=== PATIENT | female | born 1990 | race Caucasian/White ===

== ENCOUNTER 2016-07-15 09:54 | Emergency (ER) | payer BC, OTHER ==
[2016-07-15 10:08] VITALS: TEMP 98.1; O2SAT 98
--- NOTE | 2016-07-15 10:14 | CPEKG ---
Heart Rate: 89 RR Interval: 674 P-R Interval: 160 QRSD Interval: 88 QT Interval: 368 QTC Interval: 448 P Ingalls: 63 QRS Ingalls: 50 T Wave Ingalls: -18 EKG Severity - BORDERLINE ECG - EKG Impression: SINUS RHYTHM EKG Impression: BORDERLINE T ABNORMALITIES, DIFFUSE LEADS Electronically Signed By: Adeel Edward 16-Jul-2016 11:43:41
[2016-07-15] MEDS ORDERED: NS 500 ML IV ONE ×2 (10:18→11:26)
--- NOTE | 2016-07-15 10:22 | UCPHY ---
H & P Time Seen by Provider: 07/15/16 10:07 Patient Type: New HPI/ROS: CHIEF COMPLAINT: Fall, syncope HISTORY OF PRESENT ILLNESS: Patient is a 25-year-old female who presents emergency department after having syncopal episode at work. Patient states that she is G1 para 1. She has an [id number] child that she is . She has had a heavy period for the past month. She had an IUD placed in September. The patient also reports the stomach flu last week with multiple episodes of vomiting. She feels "dehydrated." While at work she had no preceding symptoms. She "blacked out" and fell to the floor. She struck the front of her face breaking her teeth. She denies any headache or neck pain at this time. She has no lightheadedness or dizziness. No chest pain or shortness of breath. No recent travel. No leg pain or swelling. No previous episodes of syncope. REVIEW OF SYSTEMS: My complete review of systems is negative except as mentioned in the HPI. Past Medical/Surgical History: Negative Past surgical history: Negative Social history: The patient does not smoke use alcohol. Smoking Status: Never smoked Physical Exam: Vitals noted GENERAL: No acute distress, alert. HEAD: No evidence of trauma. EYES: PERRLA, EOMI, normal to inspection. ENT: Airway intact, patient has a fracture her to upper front teeth. These appear to be Cabrera 1 fractures. I see no pulp No malocclusion, no hemotympanum , normal external examination. NECK: The trachea is midline. There is no crepitus. The C-spine is nontender. NEXUS criteria is negative (no midline tenderness, no distracting injury, no altered mental status, no recent alcohol use, no focal neurologic deficit). RESPIRATORY: Clear to auscultation bilaterally, no rales, rhonchi or wheezing. There is no crepitus or palpable rib fractures. CVS: Regular rate and rhythm, no rubs, murmurs, or gallops. ABDOMEN: Soft, nontender, nondistended, normal bowel sounds, no bruising or abrasions. Pelvis: Stable. No tenderness palpation. Hips full range of motion. BACK: Normal to inspection, no spinal tenderness, no spinal step off, no notable bruising or abrasions. SKIN: Normal color, warm, dry. No pallor or diaphoresis. EXTREMITIES: Atraumatic, neurovascularly intact distally in all extremities, pelvis is stable , hips with full range of motion, moves all extremities freely. NEURO/PSYCH: Higher functions: Alert and Oriented x3. Normal speech and cognition. Normal mood and affect. Cranial nerves: Normal as tested. Cerebellar: Normal as tested. Good finger to nose, good [id number], normal gait. Peripheral exam: Normal motor exam. Normal sensation. Normal reflexes. Constitutional: Initial Vital Signs Temperature (C) 36.7 C 07/15/16 10:05 Heart Rate 98 07/15/16 10:05 Respiratory Rate 18 07/15/16 10:05 Blood Pressure 111/72 07/15/16 10:05 O2 Sat (%) 98 07/15/16 10:05 O2 Delivery Mode Room Air Allergies/Adverse Reactions: No Known Allergies Allergy (Unverified 07/15/16 10:04) Home Medications: Medication Instructions Recorded Ibuprofen 07/15/16 Paraguard Iud 07/15/16 Penicillin V Potassium 500 mg PO TID 10 Days 07/15/16 Tylenol 07/15/16 Medical Decision Making - Diagnostics EKG Interpretation: EKG shows normal sinus rhythm, normal rate, normal axis, normal intervals. There are no ST or T-wave abnormalities. EKG is normal as interpreted by me. ED Course/Re-evaluation: In the emergency department I discussed possible etiologies with the patient. I discussed the plan with the patient. She does not want a head CT at this time. I discussed the risks and benefits of this. She consented laboratory studies, EKG. She was given normal saline 500 mL IV for hydration. I reviewed the patient's laboratory studies. White count was mildly elevated at 13. She is not anemic. She was noted to have a mildly low glucose at 69. Her UA was negative. negative. I discussed the results with the patient. I offered another bolus of normal saline. She states she feels better. I discussed the low glucose and elevated white count. She does not want have recheck of her laboratory studies to ensure that her glucose is not dropping. She was given warnings prior to leaving. She will eat immediately. She will return with worsening symptoms. She know she needs close follow-up with the dentist. Differential Diagnosis: My differential includes but is not limited to syncope, ACS, acute DC, dysrhythmia, dissection, aneurysm, dehydration, electrolyte abnormality, sugar abnormality - Data Points Laboratory Results: Laboratory Results 07/15/16 10:30 07/15/16 10:30 07/15/16 07/15/16 07/15/16 10:50 10:30 10:30 WBC RBC Hgb Hct MCV MCH MCHC RDW Plt Count MPV Neut % (Auto) Lymph % (Auto) Travis % (Auto) Eos % (Auto) Baso % (Auto) Nucleat RBC Rel Count Absolute Neuts (auto) Absolute Lymphs (auto) Absolute Monos (auto) Absolute Eos (auto) Absolute Basos (auto) Absolute Nucleated RBC Immature Gran % Immature Gran # Sodium 141 mEq/L mEq/L (134-144) Potassium 3.5 mEq/L mEq/L (3.5-5.2) Chloride 104 mEq/L mEq/L (97-110) Carbon Dioxide 22 mEq/l mEq/l (22-31) Anion Gap 15 mEq/L mEq/L (8-16) BUN 12 mg/dL mg/dL (7-23) Creatinine 0.6 mg/dL mg/dL (0.6-1.0) Estimated GFR > 60 Glucose 69 mg/dL L mg/dL (70-100) Calcium 8.9 mg/dL mg/dL (8.5-10.4) Beta HCG, Qual NEGATIVE Urine Color YELLOW Urine Appearance CLEAR Urine pH 6.0 (5.0-7.5) Ur Specific Wisner <= 1.005 (1.002-1.030) Urine Protein NEGATIVE (NEGATIVE) Urine Ketones NEGATIVE (NEGATIVE) Urine Blood 1+ H (NEGATIVE) Urine Nitrate NEGATIVE (NEGATIVE) Urine Bilirubin NEGATIVE (NEGATIVE) Urine Urobilinogen 0.2 EU EU (0.2-1.0) Ur Leukocyte Esterase NEGATIVE (NEGATIVE) Urine RBC 0-1 /hpf /hpf (0-3) Urine WBC 0-1 /hpf /hpf (0-3) Ur Epithelial Cells TRACE /lpf /lpf (NONE-1+) Ur Culture Indicated? NOT INDICATED (NI) Urine Glucose NEGATIVE (NEGATIVE) 07/15/16 10:30 WBC 13.63 10^3/uL H 10^3/uL (3.80-9.50) RBC 4.35 10^6/uL 10^6/uL (4.18-5.33) Hgb 13.2 g/dL g/dL (12.6-16.3) Hct 39.3 % % (38.0-47.0) MCV 90.3 fL fL (81.5-99.8) MCH 30.3 pg pg (27.9-34.1) MCHC 33.6 g/dL g/dL (32.4-36.7) RDW 12.2 % % (11.5-15.2) Plt Count 272 10^3/uL 10^3/uL (150-400) MPV 10.0 fL fL (8.7-11.7) Neut % (Auto) 82.2 % H % (39.3-74.2) Lymph % (Auto) 12.0 % L % (15.0-45.0) Travis % (Auto) 4.8 % % (4.5-13.0) Eos % (Auto) 0.3 % L % (0.6-7.6) Baso % (Auto) 0.3 % % (0.3-1.7) Nucleat RBC Rel Count 0.0 % % (0.0-0.2) Absolute Neuts (auto) 11.20 10^3/uL H 10^3/uL (1.70-6.50) Absolute Lymphs (auto) 1.64 10^3/uL 10^3/uL (1.00-3.00) Absolute Monos (auto) 0.66 10^3/uL 10^3/uL (0.30-0.80) Absolute Eos (auto) 0.04 10^3/uL 10^3/uL (0.03-0.40) Absolute Basos (auto) 0.04 10^3/uL 10^3/uL (0.02-0.10) Absolute Nucleated RBC 0.00 10^3/uL 10^3/uL (0-0.01) Immature Gran % 0.4 % % (0.0-1.1) Immature Gran # 0.05 10^3/uL 10^3/uL (0.00-0.10) Sodium Potassium Chloride Carbon Dioxide Anion Gap BUN Creatinine Estimated GFR Glucose Calcium Beta HCG, Qual Urine Color Urine Appearance Urine pH Ur Specific Wisner Urine Protein Urine Ketones Urine Blood Urine Nitrate Urine Bilirubin Urine Urobilinogen Ur Leukocyte Esterase Urine RBC Urine WBC Ur Epithelial Cells Ur Culture Indicated? Urine Glucose Medications Given: Discontinued Medications Sodium Chloride (Ns) 500 mls @ 0 mls/hr IV ONCE ONE PRN Reason: As Directed Stop: 07/15/16 10:19 Last Admin: 07/15/16 10:20 Dose: 500 mls Sodium Chloride (Ns) 500 mls @ 1,500 mls/hr IV ONCE ONE Stop: 07/15/16 11:45 Last Admin: 07/15/16 11:28 Dose: Not Given Departure - Departure Disposition: Home, Routine, Self-Care Clinical Impression: Syncope and collapse Dental injury Qualifiers: Encounter type: initial encounter Qualified Code(s): S09.93XA - Unspecified injury of face, initial encounter Condition: Good Instructions: Syncope (ED) Additional Instructions: Stay well-hydrated. Drink frequent small amounts of fluid. If he felt lightheaded or dizzy should sit down to avoid trauma. You been given penicillin for her dental fracture. You need close follow-up with your dentist. Keep your appointment for Monday. Referrals: Hansa Camacho MD [Primary Care Provider] - 2-3 days, if not improved [facility] [Outside] - As per Instructions [facility] [Outside] - As per Instructions Prescriptions: Penicillin V Potassium 500 mg PO TID 10 Days - PQRS PQRS Measurement: My PQRS negative my PQRS negative my PQRS negative my PQRS negative 134: Depression screening and followup, PRIME RAINES-PHQ2 (12 years and older) Over the last 2 weeks, how often have you been bothered by any of the following problems? 1. Feeling down, depressed, or hopeless? 2. Little interest or pleasure in doing things? Patient answered no to both 1 and 2 130: Documentation of medications. Reviewed all patient medications, doses, route and frequency. 226: Do you smoke? No.
[2016-07-15 10:39] LABS: % IMMATURE GRANULYOCYTES 0.4 % (0.0-1.1); ABSOLUTE IMMATURE GRANULOCYTES 0.05 10^3/uL (0.00-0.10); ADD DIFF? NO; ADD MORPH? NO; ADD SCAN? NO; ATYPICAL LYMPHOCYTE FLAG 20 (0-99); FRAGMENT RBC FLAG 0 (0-99); HEMATOCRIT 39.3 % (38.0-47.0); HEMOGLOBIN 13.2 g/dL (12.6-16.3); LEFT SHIFT FLG 0 (0-99); LIPEMIA HEMOLYSIS FLAG 80 (0-99); MEAN CELL HEMOGLOBIN 30.3 pg (27.9-34.1); MEAN CELL HEMOGLOBIN CONCENTR. 33.6 g/dL (32.4-36.7); MEAN CELL VOLUME 90.3 fL (81.5-99.8); PLATELET CLUMPS FLAG 0 (0-99); PLATELET COUNT 272 10^3/uL (150-400); RED BLOOD CELL COUNT 4.35 10^6/uL (4.18-5.33); RED CELL DISTRIBUTION WIDTH 12.2 % (11.5-15.2)
[2016-07-15 10:57] LABS: ANION GAP 15 mEq/L (8-16); CALCIUM 8.9 mg/dL (8.5-10.4); CARBON DIOXIDE 22 mEq/l (22-31); CHLORIDE 104 mEq/L (97-110); CREATININE 0.6 mg/dL (0.6-1.0); GLOMERULAR FILTRATION RATE > 60; GLUCOSE 69 mg/dL (70-100); POTASSIUM 3.5 mEq/L (3.5-5.2); SODIUM 141 mEq/L (134-144)
[2016-07-15 11:04] LABS: COLOR YELLOW; LEUKOCYTE ESTERASE,URINE NEGATIVE (NEGATIVE); NITRITE,URINE NEGATIVE (NEGATIVE)
[2016-07-15 11:21] LABS: RBC,URINE 0-1 /hpf (0-3); WBC,URINE 0-1 /hpf (0-3)
[2016-07-15 11:30] VITALS: BP 113/72; PULSE 80; RESP 16
== END 2016-07-15 11:38 | disposition home or self-care (01) ==
LOC: CED 09:54
DX: S09.93XA Unspecified injury of face, initial encounter (principal); R55 Syncope and collapse; W19.XXXA Unspecified fall, initial encounter
CPT/HCPCS: 80048-PO; 81003-PO; 81015-PO; 84703-PO; 85025-PO; 93010-PO; 96360-PO; 99203-PO; G0463-PO